=== PATIENT | female | born 2000 | race Caucasian/White ===

== ENCOUNTER 2024-04-13 19:56 | Day surgery (SDC) | payer BC ==
[2024-04-13 20:30] VITALS: BMI 33.8
[2024-04-13] MEDS ORDERED: hydrALAZINE 20 MG/ML VIAL SLOW IVP PRN (20:43)
[2024-04-13 21:05] LABS: Fetal Membranes Rupture No Membranes Rupture (No Rupture)
[2024-04-13 22:17] LABS: Bilirubin Neg (Negative); Blood, Urine 150 (Negative); Clarity Clear (Clear); Glucose, Urine (Dipstick) Normal (Negative); Ketone, Urine Negative (Negative); Leukocyte 100 (Negative); Nitrite Negative (Negative); Protein, Urine (Dipstick) 15 mg/dl (Neg-Trace); Specific Gravity, Urine 1.015 (1.005-1.030); Urobilinogen Normal mg/dL (Less than 2)
[2024-04-13 22:25] LABS: Bacteria/HPF None Seen HPF (None Seen); CAUTI Indications for Culture Pregnancy; RBC/HPF 21-50 HPF (0-3); WBC/HPF 0-3 HPF (0-3)
[2024-04-13 22:26] LABS: Urine Culture Reflex Yes Yes
== END 2024-04-13 23:20 | disposition home or self-care (01) ==
LOC: CSHLD/OP 19:56
PROVIDERS: ATTEND Obstetrics & Gynecology
DX: O47.1 False labor at or after 37 completed weeks of gestation (principal); Z3A.37 37 weeks gestation of pregnancy; Z79.899 Other long term (current) drug therapy; Z88.0 Allergy status to penicillin
CPT/HCPCS: 76815; 81001; 84112; 87086; 87480; 87510; 87660

== ENCOUNTER 2024-04-15 02:09 | Inpatient (IN) | payer BC ==
[2024-04-15 02:58] LABS: Fetal Membranes Rupture RUPTURE DETECTED (No Rupture)
[2024-04-15] MEDS ORDERED: Tranexamic Acid 1,000 MG/10 ML VIAL IVP PRN (03:08)
[2024-04-15] MEDS ORDERED: Lidocaine 1% (PF) 30 ML VIAL SC PRN (03:15)
[2024-04-15] MEDS ORDERED: Carboprost 250 MCG/ML AMP IM PRN (03:15)
[2024-04-15] MEDS ORDERED: Ondansetron PF 4 MG/2 ML Vial IVP PRN ×2 (03:15→16:19)
[2024-04-15] MEDS ORDERED: Promethazine HCl 25 MG/ML VIAL IM PRN ×2 (03:15→04:13)
[2024-04-15] MEDS ORDERED: Acetaminophen 500 MG TAB PO PRN (03:15)
[2024-04-15] MEDS ORDERED: hydrALAZINE 20 MG/ML VIAL SLOW IVP PRN ×2 (03:15→16:19)
[2024-04-15] MEDS ORDERED: Misoprostol 200 MCG TAB RC PRN (03:15)
[2024-04-15] MEDS ORDERED: Methylergonovine 0.2 MG/ML VIAL IM PRN (03:15)
[2024-04-15] MEDS ORDERED: Ibuprofen 800 MG TAB PO PRN (03:15)
[2024-04-15] MEDS ORDERED: Oxytocin 30 units/NS 500 ML 500 ML IVPB SCH (03:15)
[2024-04-15] MEDS: Lactated Ringer's 1,000 ML IV SCH (03:20)
[2024-04-15] MEDS: fentaNYL 50 mcg/mL 1 mL Vial SLOW IVP PRN (03:30)
[2024-04-15 03:36] VITALS: BMI 33.5
[2024-04-15 03:40] LABS: Hematocrit 34.6 % (34.9-44.5); Mean Corpuscular HGB CONC 34.7 g/dL (32.0-36.0); Mean Corpuscular Hemoglobin 27.8 pg (27.0-33.0); Mean Corpuscular Volume 80.3 fL (81.6-98.3); Mean Platelet Volume 11.1 fL (7.4-10.4); Platelet Count 264 10x3/uL (150-450); RBC Distribution Width 13.2 % (11.5-14.5); Red Blood Cell (RBC) Count 4.31 10x6/uL (3.90-5.03); White Blood Cell (WBC) Count 14.1 10x3/uL (3.5-10.5)
[2024-04-15] MEDS: fentaNYL/Ropivacaine Epidural 100 ML ONE (04:11)
[2024-04-15 04:12] LABS: HBsAg Index 0.19 S/CO (0-0.99); Hep B Surf Ag - L&D Non-Reactive S/CO (NonReactive)
[2024-04-15 04:13] LABS: Syphilis Antibody Nonreactive (Nonreactive); Syphilis Antibody Index 0.03 S/CO (<1.00 Non-Reactive)
[2024-04-15] MEDS ORDERED: Naloxone HCl 0.4 mg/ml Vial IVP PRN ×2 (04:13)
[2024-04-15] MEDS ORDERED: Lactated Ringer's 500 ML IV PRN (04:13)
[2024-04-15] MEDS ORDERED: ePHEDrine Sulfate 50 MG/10 ML VIAL SLOW IVP PRN (04:13)
[2024-04-15] MEDS ORDERED: diphenhydrAMINE 50 MG/ML VIAL IVP PRN (04:13)
[2024-04-15] MEDS ORDERED: Moisturizing Cream (Eucerin) 113 GM JAR TOP PRN (04:13)
[2024-04-15] MEDS ORDERED: Communication Order-Pharmacy FS SCH (04:15)
[2024-04-15] MEDS ORDERED: fentaNYL 2 mcg/Ropivacaine 0.2% Epidural 100 ML CADD EPIDURAL SCH (04:15)
[2024-04-15] MEDS: CEFAZOLIN 2 GM in Sodium Chloride 0.9% 100 ML IVPB SCH (04:21)
[2024-04-15] MEDS: Acetaminophen 325 MG TAB PO PRN (10:37)
[2024-04-15] MEDS: Ondansetron PF 4 MG/2 ML Vial IVP PRN (10:38)
[2024-04-15] MEDS ORDERED: diphenhydrAMINE 25 MG CAP PO PRN (16:19)
[2024-04-15] MEDS ORDERED: HYDROcodone/Acetaminophen 5/325 mg Tablet PO PRN ×2 (16:19)
[2024-04-15] MEDS ORDERED: Boostrix 0.5 ML (Tdap) VIAL (>/=7 yrs of age) IM ONE (16:19)
[2024-04-15] MEDS ORDERED: Lanolin Ointment 7 GM TUBE TOP PRN (16:19)
[2024-04-15] MEDS ORDERED: Preparation H Ointment 28 GM TUBE PR PRN (16:19)
[2024-04-15] MEDS ORDERED: Zolpidem Tartrate 5 MG TAB PO PRN (16:19)
[2024-04-15] MEDS ORDERED: Misoprostol 200 MCG TAB VAG PRN (16:19)
[2024-04-15] MEDS ORDERED: Milk Of Magnesia 30 ML UDCUP PO PRN (16:19)
[2024-04-15] MEDS ORDERED: Bisacodyl 10 MG SUPP PR PRN (16:19)
[2024-04-15] MEDS ORDERED: Oxytocin 30 units/NS 500 ML 500 ML IV SCH (16:30)
[2024-04-15] MEDS: Ibuprofen 800 MG TAB PO SCH (19:02)
[2024-04-15] MEDS: Docusate 100 MG CAP PO SCH (21:27)
[2024-04-16] MEDS: Ferrous Sulfate 325 MG TAB PO SCH (07:29)
[2024-04-16] MEDS ORDERED: Bupivacaine 0.25% HCL 30 ML VIAL ONE (09:00)
[2024-04-16] MEDS: Prenatal Vitamin 1 TAB PO SCH (09:30)
[2024-04-16] MEDS: Ibuprofen 800 MG TAB PO SCH (14:25)
[2024-04-17 16:42] VITALS: BP 119/65; TEMP 98
[2024-04-17] MEDS: Ibuprofen 800 MG TAB PO SCH (18:06)
== END 2024-04-17 20:20 | disposition home or self-care (01) | DRG 807 ==
LOC: CSHLD/OP 02:09 → CSHLD 03:01 → CSHPP 20:40
PROVIDERS: ADMIT Obstetrics & Gynecology; ATTEND Obstetrics & Gynecology
PROC: 10E0XZZ Delivery of Products of Conception, External Approach (ICD-10-PCS; principal; 2024-04-15)
DX: O42.02 Full-term premature rupture of membranes, onset of labor within 24 hours of rupture (principal); Z37.0 Single live birth; Z3A.38 38 weeks gestation of pregnancy; Z88.0 Allergy status to penicillin; Z79.899 Other long term (current) drug therapy
CPT/HCPCS: 36415; 51702; 76815; 81001; 84112; 85027; 86780; 86850; 86900; 86901; 87086; 87340; 87480; 87510; 87660; 99285; J0665; J2405; J3010; J3490; J7120